=== PATIENT | male | born 1965 | race Caucasian/White ===

== ENCOUNTER 2017-02-17 07:24 | Observation (INO) | payer OTHER ==
[2017-02-17] MEDS ORDERED: NS 1,000 ML IV ONE (07:30)
--- NOTE | 2017-02-17 07:49 | CPEKG ---
Heart Rate: 66 RR Interval: 909 P-R Interval: 148 QRSD Interval: 94 QT Interval: 408 QTC Interval: 428 P Printer: 68 QRS Printer: 46 T Wave Printer: 48 EKG Severity - NORMAL ECG - EKG Impression: SINUS RHYTHM Electronically Signed By: Jeaneth Gee 17-Feb-2017 08:23:36
[2017-02-17] MEDS ORDERED: BUPIVACAINE 0.5% 30 ML SDV ONE (08:03)
[2017-02-17] MEDS ORDERED: HEPARIN 10,000 UNIT/10 ML MDV ONE (08:03)
[2017-02-17] MEDS ORDERED: LIDOCAINE 1% 300 MG/30 ML SDV ONE (08:03)
[2017-02-17] MEDS ORDERED: ISOPROTERENOL HCL/D5W 0.2 MG/50 ML BAG IV ONE (08:03)
[2017-02-17 08:09] LABS: % IMMATURE GRANULYOCYTES 0.4 % (0.0-1.1); ABSOLUTE IMMATURE GRANULOCYTES 0.03 10^3/uL (0.00-0.10); ADD DIFF? NO; ADD MORPH? NO; ADD SCAN? NO; ATYPICAL LYMPHOCYTE FLAG 0 (0-99); FRAGMENT RBC FLAG 0 (0-99); HEMATOCRIT 44.2 % (40.0-51.0); HEMOGLOBIN 15.8 g/dL (13.7-17.5); LEFT SHIFT FLG 0 (0-99); LIPEMIA HEMOLYSIS FLAG 90 (0-99); MEAN CELL HEMOGLOBIN 31.8 pg (27.9-34.1); MEAN CELL HEMOGLOBIN CONCENTR. 35.7 g/dL (32.4-36.7); MEAN CELL VOLUME 88.9 fL (81.5-99.8); MEAN PLATELET VOLUME 8.2 fL (8.7-11.7); PLATELET CLUMPS FLAG 20 (0-99); PLATELET COUNT 284 10^3/uL (150-400); RED BLOOD CELL COUNT 4.97 10^6/uL (4.40-6.38); RED CELL DISTRIBUTION WIDTH 11.9 % (11.5-15.2)
[2017-02-17 08:20] LABS: INR 0.93 (0.83-1.16); PROTIME(PATIENT) 12.7 SEC (12.0-15.0)
[2017-02-17 08:21] LABS: APTT 29.4 SEC (23.0-38.0)
--- NOTE | 2017-02-17 08:22 | PDGENHP ---
History & Physical Chief Complaint: symptomatic svt History of Present Illness: svt Relevant Physical Exam: [id number] Cardiorespiratory Assessment: svt for ablation today
[2017-02-17 08:27] LABS: ANION GAP 14 mEq/L (8-16); CALCIUM 9.6 mg/dL (8.5-10.4); CARBON DIOXIDE 22 mEq/l (22-31); CHLORIDE 107 mEq/L (97-110); CREATININE 0.9 mg/dL (0.7-1.3); GLOMERULAR FILTRATION RATE > 60; GLUCOSE 95 mg/dL (70-100); MAGNESIUM 1.8 mg/dL (1.6-2.3); POTASSIUM 4.3 mEq/L (3.5-5.2); SODIUM 143 mEq/L (134-144)
[2017-02-17] MEDS ORDERED: MIDAZOLAM 2 MG/2 ML VIAL IVP ONE (08:34)
--- NOTE | 2017-02-17 08:34 | PDANEPAE ---
ANE History of Present Illness SVT ANE Past Medical History - Cardiovascular History Hx Hypertension: No Hx Arrhythmias: Yes Hx Chest Pain: No Hx Coronary Artery / Peripheral Vascular Disease: No Hx CHF / Valvular Disease: No Hx Palpitations: No Cardiovascular History Comment: SVT - Pulmonary History Hx COPD: No Hx Asthma/Reactive Airway Disease: No Hx Recent Upper Respiratory Infection: No Hx Oxygen in Use at Home: No Hx Sleep Apnea: No - Neurologic History Hx Cerebrovascular Accident: No Hx Seizures: No Hx Dementia: No - Endocrine History Hx Diabetes: No Hypothyroid: No Hyperthyroid: No Obesity: no - Renal History Hx Renal Disorders: No - Liver History Hx Hepatic Disorders: No - Neurological & Psychiatric Hx Hx Neurological and Psychiatric Disorders: No - Cancer History Hx Cancer: No - Congenital Disorder History Hx Congenital Disorders: No - GI History Hx Gastrointestinal Disorders: No ANE Review of Systems Review of systems is: negative Review of Systems: - Exercise capacity Exercise capacity: >=4 METS ANE Patient History - Allergies Allergies/Adverse Reactions: No Known Allergies Allergy (Unverified 02/10/17 13:28) - Home Medications Home medications: home medication list seen and reviewed Home Medications: Ascorbic Acid [Vitamin C 500 mg (*)] 500 mg PO DAILY 02/10/17 [Last Taken 1 tab 500 mg] Carboxymethylcellulose 1% [Refresh Celluvisc (*)] 1 drop EACHEYE DAILY PRN 02/10 [Last Taken 02/16/17 1 drop per eye] Herbals/Supplements -Info Only 1 ea PO DAILY 02/10/17 [Last Taken 02/16/17 1 tablet] Vitamin B Complex [B Complex] 1 each PO DAILY 02/10/17 [Last Taken 02/16/17 1 tablet] - NPO status NPO Status: no food or drink >8 hours - Anes Hx Anes Hx: no prior problems - Smoking Hx Smoking Status: Never smoked (chew) - Alcohol Use Alcohol Use: None - Family Anes Hx Family Anes Hx: none ANE Labs/Vital Signs - Labs Result Diagrams: 02/17/17 07:40 02/17/17 07:40 - Vital Signs Vital Signs: reviewed preoperatively; see RN documention for details Height: 170.18 cm Weight: 68.039 kg ANE Physical Exam - Airway Neck exam: FROM Mallampati Score: Class 1 Mouth exam: normal dental/mouth exam - Pulmonary Pulmonary: no respiratory distress - Cardiovascular Cardiovascular: regular rate and rhythym - ASA Status ASA Status: III ANE Anesthesia Plan Anesthesia Plan: general endotracheal anesthesia
[2017-02-17] MEDS ORDERED: ROCURONIUM 100 MG/10 ML VIAL ONE (08:36)
[2017-02-17] MEDS ORDERED: fentaNYL 100 MCG/2 ML INJ ONE ×2 (08:36→10:57)
[2017-02-17] MEDS ORDERED: LIDOCAINE 2% 5 ML SDV ONE (08:36)
[2017-02-17] MEDS ORDERED: PROPOFOL 200 MG/20 ML VIAL ONE (08:37)
[2017-02-17] MEDS ORDERED: PHENYLEPHRINE HCL 100 MCG/ML SYR ONE (09:05)
[2017-02-17] MEDS ORDERED: SUGAMMADEX SODIUM 200 MG/2 ML VIAL IVP ONE (10:54)
--- NOTE | 2017-02-17 11:28 | EPPROC ---
Electrophysiology Procedure Note: ELECTROPHYSIOLOGIC STUDY AND CATHETER MEDIATED ABLATION OF SLOW/FAST AV ERNESTO REENTRY TACHYCARDIA PROCEDURES PERFORMED: 83075-42 EP evaluation with RA/RV/LA pace/record, with arrhythmia induction 45890-39 EP evaluation with RA/RV pace record, insert/reposition catheter, with arrhythmia induction 74303 Intracardiac catheter ablation, SVT arrhythmogenic focus 16509 3D mapping Fluoroscopy INDICATION: Recurrent SVT PROCEDURE: Catheters & Anesthesia: The patient arrived in the Electrophysiology Laboratory in the fasting state. The right clavicular region, right groin, and left groin area were prepped and draped in the usual sterile manner. Anesthesiologist Dr. Kenton Wallace administered general anesthesia. Appropriate non-invasive blood pressure, pulse oximetry and end-tidal CO2 monitoring was established. All catheters were placed percutaneously using the modified Seldinger technique , and advanced into position under fluoroscopic guidance. One #6 Tongan hexapolar non-deflectable electrode catheter was inserted into the right atrial appendage via the left femoral vein (2mm spacing; except the proximal ring which was 25cm from the tip used for unipolar recordings). One #7 Tongan deflectable octapolar electrode catheter was advanced to the His-bundle position via the left femoral vein (2mm spacing). One #7 Tongan deflectable quadrapolar catheter was advanced to the anteroseptal right ventricle via the right femoral vein. One #7 Tongan deflectable catheter with 10 pairs of electrodes was placed via the right femoral vein into the coronary sinus. Heparin 3000 U was given. Programmed stimulation was performed from the right atrium, right ventricle and coronary sinus (left atrium). Parahisian pacing demonstrated constant H-A interval with changing V-A intervals and stimulus-A intervals during capture and loss of capture of proximal RBB proving retrograde conduction over AV node. 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 Ventricular extrastimuli delivered during tachycardia without altering antegrade His bundle activation did not advance next atrial potential, indicating that the tachycardia was not utilizing an accessory pathway for retrograde conduction. VA interval was 5 ms. Post entrainment of the tachycardia from the ventricle, there was VAHV response. Mapping of the right atrium and coronary sinus during AVNRT identified earliest atrial activation above the tendon of Gary at a level slightly posterior to the level of the His bundle, consistent with retrograde conduction over the fast AV ernesto pathway. A #8 Tongan deflectable quadrapolar electrode catheter (2mm-5mm-2mm spacing) with 4 mm tip electrode and sensor for the 3D mapping Carto system was advanced to the right atrium. 3 D mapping of the inter-atrial septum and coronary sinus was performed and location of the AV node was marked. A SL2 sheath was used. RF applications were delivered to the region between the tricuspid annulus and the coronary sinus ostium, at the level of the upper edge of the coronary sinus ostium. Radiofrequency applications were also delivered along the roof of the proximal coronary sinus. Junctional rhythm occurred during all of the RF applications. Programmed stimulation was continued post ablation at baseline and during graded doses of isoproterenol upto 4mcg/min. Sustained AVNRT was not inducible. There were up to 2 echo beats. The catheters were removed. The long sheath was changed to a short 9 Fr sheath. Subcutaneous pursestring sutures were placed around both venous access sites. The patient was transferred to the cardiovascular holding area in stable condition. Vascular access sheaths were removed in the holding area. There were no apparent complications. Results: A. Spontaneous Intervals: Pre ablation SCL 1210 ms AH 75 ms HV 40 ms Post ablation SCL 730 ms AH 65 ms HV 40 ms B. Antegrade AV ernesto function (decremental pacing) Pre ablation FPERP 440 ms AH jump from 130 to 290 ms then AVNRT Post ablation FPERP 340 ms WBB CL 330 ms C. Retrograde AV ernesto function (decremental pacing) Pre ablation FPERP 440 ms WBB CL 430 ms D. Arrhythmias: Sustained slow/fast AVNRT Cycle length 370 ms, AH interval 330 ms, DICKENS interval 40 ms VA interval 5 ms CONCLUSIONS 1. 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 ( Slow/fast AVNRT). 2. Successful ablation of the slow AV ernesto pathway with elimination of 1:1 antegrade conduction over the slow AV ernesto pathway, all retrograde conduction over the slow AV ernesto pathway and the inducibility of AVNRT. 3. No complications. Patient Problems: Problems Problem Status Onset Supraventricular tachycardia Acute
[2017-02-17] MEDS ORDERED: ACETAMINOPHEN 325 MG TAB PO PRN (11:29)
[2017-02-17] MEDS ORDERED: HYDROCODONE/APAP 5/325 TAB PO PRN (11:29)
[2017-02-17] MEDS ORDERED: ONDANSETRON 4 MG/2 ML VIAL IVP PRN ×2 (11:29→11:33)
[2017-02-17] MEDS ORDERED: CARBOXYMETHYLCELLULOSE 1% 0.4 ML DROPERETTE EACHEYE PRN (11:30)
[2017-02-17] MEDS ORDERED: PROMETHAZINE HCL 25 MG/ML INJ IVP PRN (11:33)
[2017-02-17] MEDS ORDERED: NALOXONE HCL 0.4 MG/ML INJ IVP PRN (11:33)
[2017-02-17] MEDS ORDERED: OXYCODONE/APAP 5/325 TAB PO PRN (11:33)
[2017-02-17] MEDS ORDERED: ALBUTEROL 3 ML DEYVIAL IH PRN (11:33)
[2017-02-17] MEDS ORDERED: fentaNYL 100 MCG/2 ML INJ IVP PRN (11:33)
--- NOTE | 2017-02-17 11:33 | POSTANESTH ---
Post Anesthetic Evaluation Cardiovascular Status: Normal, Stable Respiratory Status: Normal, Stable Level of Consciousness/Mental Status: Can Participate in Eval Pain Control: Adequate, Prn Tx Ordered Nausea/Vomiting Control: Adequate, Prn Tx Ordered Complications Possibly Related to Anesthesia: None Noted
--- NOTE | 2017-02-17 11:38 | CPEKG ---
Heart Rate: 79 RR Interval: 759 P-R Interval: 152 QRSD Interval: 92 QT Interval: 380 QTC Interval: 436 P [place]: 78 QRS [place]: 36 T Wave [place]: 42 EKG Severity - NORMAL ECG - EKG Impression: SINUS RHYTHM Electronically Signed By: Jeaneth Gee 17-Feb-2017 14:29:08
[2017-02-17] MEDS ORDERED: KETOROLAC 30 MG/1 ML SDV ONE (11:40)
[2017-02-17] MEDS ORDERED: KETOROLAC 15 MG/1 ML SDV IVP ONE (11:45)
[2017-02-17 12:54] LABS: ANION GAP 11 mEq/L (8-16); CALCIUM 8.7 mg/dL (8.5-10.4); CARBON DIOXIDE 21 mEq/l (22-31); CHLORIDE 110 mEq/L (97-110); CREATININE 0.9 mg/dL (0.7-1.3); GLOMERULAR FILTRATION RATE > 60; GLUCOSE 123 mg/dL (70-100); MAGNESIUM 1.8 mg/dL (1.6-2.3); POTASSIUM 5.3 mEq/L (3.5-5.2); SODIUM 142 mEq/L (134-144); SPECIMEN HEMOLYSIS 189
[2017-02-17 19:53] VITALS: O2SAT 94
[2017-02-18 05:12] LABS: % IMMATURE GRANULYOCYTES 0.3 % (0.0-1.1); ABSOLUTE IMMATURE GRANULOCYTES 0.03 10^3/uL (0.00-0.10); ADD DIFF? NO; ADD MORPH? NO; ADD SCAN? NO; ATYPICAL LYMPHOCYTE FLAG 0 (0-99); FRAGMENT RBC FLAG 0 (0-99); HEMATOCRIT 40.1 % (40.0-51.0); HEMOGLOBIN 14.3 g/dL (13.7-17.5); LEFT SHIFT FLG 0 (0-99); LIPEMIA HEMOLYSIS FLAG 90 (0-99); MEAN CELL HEMOGLOBIN CONCENTR. 35.7 g/dL (32.4-36.7); MEAN CELL VOLUME 89.7 fL (81.5-99.8); MEAN PLATELET VOLUME 8.6 fL (8.7-11.7); PLATELET CLUMPS FLAG 0 (0-99); PLATELET COUNT 277 10^3/uL (150-400); RED BLOOD CELL COUNT 4.47 10^6/uL (4.40-6.38); RED CELL DISTRIBUTION WIDTH 11.9 % (11.5-15.2)
[2017-02-18 05:24] LABS: ANION GAP 11 mEq/L (8-16); CALCIUM 8.9 mg/dL (8.5-10.4); CARBON DIOXIDE 23 mEq/l (22-31); CHLORIDE 105 mEq/L (97-110); CREATININE 0.9 mg/dL (0.7-1.3); GLOMERULAR FILTRATION RATE > 60; GLUCOSE 112 mg/dL (70-100); POTASSIUM 3.9 mEq/L (3.5-5.2); SODIUM 139 mEq/L (134-144)
[2017-02-18 05:29] LABS: PROTIME(PATIENT) 13.4 SEC (12.0-15.0)
[2017-02-18 05:33] LABS: CREATINE KINASE-MB FRACTION 2.73 ng/mL (0.00-3.19); TROPONIN I 0.272 ng/mL (0.000-0.034)
[2017-02-18 07:32] VITALS: BP 111/75; PULSE 60; RESP 10; TEMP 98
[2017-02-18] MEDS ORDERED: ASPIRIN 81 MG CHEWABLE TAB PO SCH (09:00)
--- NOTE | 2017-02-18 09:10 | CPEKG ---
Heart Rate: 60 RR Interval: 1000 P-R Interval: 144 QRSD Interval: 100 QT Interval: 408 QTC Interval: 408 P [place]: 59 QRS [place]: 29 T Wave [place]: 38 EKG Severity - NORMAL ECG - EKG Impression: SINUS RHYTHM Electronically Signed By: Jeaneth Gee 18-Feb-2017 10:39:28
[2017-02-18 09:52] LABS: CHOLESTEROL 190 mg/dL (140-200); CHOLESTEROL/HDL RATIO 3.52 RATIO (1.00-4.97); HIGH DENSITY LIPOPROTEIN 54 mg/dL (40-65); LDL/HDL RATIO 2.13 RATIO (1.00-3.64); LOW DENSITY LIPOPROTEIN 115 mg/dL (70-100); NON-HIGH DENSITY LIPOPROTEIN 136 mg/dL (90-129); TRIGLYCERIDE 105 mg/dL (40-150); VERY LOW DENSITY LIPOPROTEINS 21 mg/dL (8-25)
--- NOTE | 2017-02-19 03:54 | GDS ---
[f rep st] DISCHARGE SUMMARY DISCHARGE DIAGNOSES: 1. Supraventricular tachycardia. 2. Status post ablation of atrioventricular colton reentry tachycardia. BRIEF HISTORY: This is a 51-year-old man with a history of palpitations for 10 years. These have lasted up to 8 hours and SVT has been documented in the [facility] ER. Episodes have been occurring more frequently, and he does not want to take long-term medication. HOSPITAL COURSE: Dr. Allison performed ablation of AVNRT. Successful ablation of the slow AV colton pathway with elimination of 1:1 conduction over the slow AV colton pathway, all retrograde conduction, and no inducible AVNRT post ablation. The patient reports feeling well overnight. Telemetry demonstrates sinus rhythm without significant arrhythmias. The patient denies any chest pain, pressure, tightness, shortness of breath or bleeding or pain at his groin sites. Testing done: Echocardiogram report is not officially read, however, preliminary reports no pericardial effusion. A 12-lead EKG demonstrates sinus rhythm without ST-T wave changes. LABORATORY DATA: WBC is 8.79, hemoglobin 14.3, hematocrit 40.1, platelets 277, sodium 139, potassium 3.9, chloride 105, bicarb 23, BUN 15, creatinine 0.9, glucose 112, CK 110, CK-MB fraction 2.73, troponin is 0.272. These are elevated and to be expected post ablation. Total cholesterol is 190, triglycerides 105, LDL 115, HDL 54, non HDL 136. PHYSICAL EXAMINATION: VITAL SIGNS: Blood pressure is 111/75, pulse is 60, respirations 10, temperature is 36.6, O2 saturation on room air is 94%. GENERAL : He is alert and oriented sitting up in bed, in no acute distress. CARDIAC: Regular rate and rhythm without murmur, rub, or gallop. LUNGS: Clear to auscultation. ABDOMEN: Soft, nontender. : Groin sites are without bleeding. Sutures removed without problem from both groin sites. EXTREMITIES: Lower extremities no discoloration, no lower extremity edema. Bilateral +2 pedal pulses. DISCHARGE INSTRUCTIONS: Post ablation activity restrictions were reviewed with the patient. Of note, he has an extremely physical job as a [employer], and he will not work for 1 week, and he will not do any heavy lifting for 2 weeks. He was given written instructions on this also. DISCHARGE MEDICATIONS: He will continue with his usual home medications, which are just herbal supplements, as well as 81 mg enteric-coated aspirin daily for 6 weeks post ablation. FOLLOWUP: He has a followup on March 25 at 10:[address] Allison. /[id number]/MODL MTDVanda
--- NOTE | 2017-02-19 09:56 | ECHO ---
[email or web address] [address] [address] Main: [phone] Fax: Transthoracic Echocardiogram Name: REGINA CARVER MR#: [id number] Study Date: 02/18/2017 Study Time: 08:27 AM Date of : 1965 Age: 51 year(s) Height: 170.2 cm (67 in.) Weight: 68.04 kg (150 lb.) BSA: 1.79 m2 Gender: Male Examination: Echo Indication: F/U post EP study Image Quality: Contrast: Requested by: Timmy Allison BP: 111 mmHg/75 mmHg Heart Rate: Rhythm: Indication: F/U post EP study Procedure Staff Local Flatbed Driver: Ana Luisa Diaz Reading Physician: Ayush Cote Requesting Provider: Conclusions: Normal size left ventricle. The ejection fraction is estimated to be 65-70 %. The right atrium is mildly dilated. Trivial mitral valve regurgitation. Mild tricuspid regurgitation is present. The pulmonary artery pressure is normal. No pericardial effusion. Measurements: Chambers Valvular Assessment AV/MV Valvular Assessment TV/PV Normal Normal Normal Name Value Range Name Value Range Name Value Range Ao Yoselin (MM): 3.5 cm (2.2 cm-3.7 AV meanP mmHg ( - ) TR Vmax: 2.69 mm/s ( - ) cm) MV E Vmax: 0.64 m/s ( - ) TR PGmax: 29 mmHg ( - ) IVSd (2D): 0.5 cm (0.6 cm-1.1 MV A Vmax: 0.60 m/s ( - ) syst. PAP: 34 mmHg ( - ) cm) MV E/A: 1.07 ( - ) LVDd (2D): 5.2 cm (4.2 cm-5.9 cm) LVDs (2D): 3.0 cm (2.1 cm-4 cm) LVPWd (2D): 0.7 cm (0.6 cm-1 cm) LVEF (MOD4): 70 % (>=55 %) EF Range: 65-70 % Continued Measurements: Chambers Valvular Assessment AV/MV Valvular Assessment TV/PV Name Value Name Value Name Value LADs: 3.5 cm MV E/E' Septal: 5.10 CVP (est.): 5 mmHg Patient: REGINA CARVER Study Date: 02/18/2017 Page 1 of 2 08:27 AM LADs Lon.2 cm MV E/E' Lateral: 5.60 LA Area: 19.8 cm2 Findings: Left Ventricle: Normal size left ventricle. The ejection fraction is estimated to be 65-70 %. Right Ventricle: Normal size right ventricle. Left Atrium: The left atrium is normal in size. Right Atrium: The right atrium is mildly dilated. Mitral Valve: The mitral valve is normal in appearance and function. Trivial mitral valve regurgitation. Aortic Valve: The aortic valve is normal in appearance and function. Tricuspid Valve: The tricuspid valve is normal in appearance and function. Mild tricuspid regurgitation is present. The pulmonary artery pressure is normal. Pulmonic Valve: The pulmonic valve is normal in appearance and function. Trivial pulmonic valve regurgitation. Aorta: The aorta is normal. Pericardium: No pericardial effusion. (No Signature Object) Patient: REGINA CARVER Study Date: 02/18/2017 Page 2 of 2 08:27 AM [id number]
--- NOTE | 2017-02-19 15:38 | ASDISCHSUM ---
Discharge Information Plan Status:Home with No Needs Medically Cleared to Leave: Discharge Date:02/18/2017 11:15 AM CM D/C Disposition:Home, Routine, Self-Care ADT D/C Disposition:Home, Routine, Self-Care Projected Discharge Date:02/18/2017 11:15 AM Transportation at D/C:Family Discharge Delay Reason: Follow-Up Date:02/18/2017 11:15 AM Discharge Slot: Final Diagnosis: Placement Information Patient Contact Information Contact Name:LIBERTAD Relationship:Other Address:[address] [place] [address] City:[place] Alternate Phone: [facility]/Zip Code:[place] [phone] Email: Financial Information Financial Class:HMO and PPO Plans Primary Plan Desc:[facility] Primary Plan Number:[id number] Secondary Plan Desc: Secondary Plan Number: Assessment Information Intervention Information
== END 2017-02-18 11:15 | disposition home or self-care (01) ==
LOC: FCATH 07:24 → F2W 11:19
PROVIDERS: ADMIT Internal Medicine Cardiovascular Disease; ATTEND Internal Medicine Cardiovascular Disease
DX: I47.1 Supraventricular tachycardia (principal)
CPT/HCPCS: 93005; 93306; 93613; 93621; 93623; 93653; C1730; C1732; C1893; G0378; C1731; J1644; J1885; J2250; J2370; J2704; J3010